=== PATIENT | female | born 1930 | race African-American/Black ===

== ENCOUNTER 2018-08-29 03:20 | Inpatient (IN) | payer MEDICARE ==
[~2018-08-29] VITALS: Ht 160 cm; Wt 82.1 kg
[~2018-08-29 03:20] MED LIST: ATEN100T PO; CLON0.1T PO; INSU100C3 SQ
[2018-08-29 05:19] LABS: BASOPHILS % 0.4 % (0.0-2.0); EOSINOPHILS % 1.7 % (0.0-5.0); HEMATOCRIT. 38.9 % (36.0-48.0); HEMOGLOBIN. 12.9 g/dL (12.0-16.0); LYMPHOCYTES % 30.7 % (20.0-50.0); MEAN CORPUSCULAR HEMOGLOBIN 31.9 pg (28.0-32.0); MEAN CORPUSCULAR VOLUME 96.3 fL (81.0-99.0); MEAN PLATELET VOLUME 8.7 fl (7.4-10.4); MONOCYTES % 6.4 % (2.0-8.0); NEUTROPHILS % 60.8 % (40.0-76.0); PLATELET 148 x1000/uL (130-400); RED BLOOD CELL COUNT 4.04 mill/uL (4.2-5.4); RED CELL DISTRIBUTION WIDTH 13.7 % (11.6-14.6)
[2018-08-29 05:22] LABS: CHLORIDE 105 mEq/L (98-107)
[2018-08-29] MEDS ORDERED: GUAIFENESIN 200MG/10ML SUGAR FREE UDC PO PRN (10:15)
[2018-08-29] MEDS ORDERED: DOCUSATE SODIUM 100MG CAPSULE PO PRN (10:15)
[2018-08-29] MEDS ORDERED: NA PHOS,M-B/NA PHOS,DI-BA ENEMA 118ML PR PRN (10:15)
[2018-08-29] MEDS ORDERED: HYDROCODONE/ACETAMINOPHEN 5/325MG TABLET PO PRN (10:15)
[2018-08-29] MEDS ORDERED: DEXTROSE 50% WATER 50ML SYRINGE IV PRN (10:15)
[2018-08-29] MEDS ORDERED: IPRATROPIUM/ALBUTEROL 0.5-3(2.5)MG/3ML NEB INH PRN (10:15)
[2018-08-29] MEDS ORDERED: ONDANSETRON HCL 4MG/2ML INJ IV PRN (10:15)
[2018-08-29] MEDS ORDERED: MAGNESIUM/ALUMINUM HYDROXIDE/SIMETHICONE 30ML UDC PO PRN (10:15)
[2018-08-29] MEDS ORDERED: HYDRALAZINE 20MG/ML VIAL IV PRN (10:15)
[2018-08-29] MEDS ORDERED: ACETAMINOPHEN 650MG SUPP PR PRN (10:15)
[2018-08-29] MEDS ORDERED: ACETAMINOPHEN 325MG TABLET PO PRN (10:15)
[2018-08-29] MEDS ORDERED: LORAZEPAM 0.5MG TABLET PO PRN (10:15)
[2018-08-29] MEDS ORDERED: DIPHENHYDRAMINE 50MG/ML VIAL IV PRN (10:15)
[2018-08-29 10:19] VITALS: BP 124/64
[2018-08-29] MEDS ORDERED: ENOXAPARIN 30MG/0.3ML SYR SUBCUT SCH (10:30)
[2018-08-29] MEDS ORDERED: ATOR10TA69 MT (11:22)
[2018-08-29] MEDS ORDERED: FLUT1BLS IH (11:28)
[2018-08-29] MEDS ORDERED: FLUT9.9S16 NS (11:28)
[2018-08-29] MEDS ORDERED: ASPI-1159 MT (11:28)
[2018-08-29] MEDS ORDERED: CALC-664 PO (11:28)
[2018-08-29] MEDS ORDERED: BENZ100C86 MT (11:28)
[2018-08-29] MEDS ORDERED: FAMO20TA8 MT (11:28)
[2018-08-29] MEDS ORDERED: GABA-529 MT (11:29)
[2018-08-29] MEDS ORDERED: LORA10TA7 MT (11:30)
[2018-08-29] MEDS ORDERED: P20 MT (11:31)
[2018-08-29] MEDS ORDERED: TIMO5DRO32 EACHEYE (11:31)
[2018-08-29 12:00] VITALS: BP 116/77
[2018-08-29] MEDS ORDERED: FUROSEMIDE 40MG/4ML VIAL IVP NR (12:00)
[2018-08-29] MEDS ORDERED: LEVOFLOXACIN 500MG PREMIX 100 ML IV NR (13:00)
[2018-08-29] MEDS: INSULIN LISPRO 100 UNITS/ML SUBCUT SCH ×3 (13:10→22:27)
[2018-08-29] MEDS: BLOOD SUGAR DIAGNOSTIC STRIP TEST SCH ×3 (13:19→21:28)
[2018-08-29] MEDS: METHYLPREDNISOLONE SOD SUCC 40 MG/ML VIAL IV SCH ×2 (13:20→22:25)
[2018-08-29 15:44] LABS: CREATINE KINASE 45 IU/L (26-192)
[2018-08-29 15:45] LABS: CREATINE KINASE MB FRACTION 2.4 ng/mL (0.5-3.6)
[2018-08-29 16:00] VITALS: BP 126/58
[2018-08-29] MEDS: IPRATROPIUM/ALBUTEROL 0.5-3(2.5)MG/3ML NEB HHN SCH (16:00)
[2018-08-29] MEDS ORDERED: ENOXAPARIN 60MG/0.6ML SYR SUBCUT NR (16:19)
[2018-08-29 17:30] LABS: CLARITY URINE CLEAR (CLEAR); COLOR URINE YELLOW (YELLOW); KETONES URINE NEGATIVE (NEGATIVE); LEUKOCYTE ESTERASE URINE TRACE (NEGATIVE); NITRITE URINE NEGATIVE (NEGATIVE); OCCULT BLOOD URINE NEGATIVE (NEGATIVE); PROTEIN URINE NEGATIVE (NEGATIVE); SPECIFIC GRAVITY URINE 1.011 (1.005-1.030); UROBILINOGEN URINE 0.2 E.U./dL (0.2-1.0)
[2018-08-29 17:33] LABS: PROTHROMBIN TIME 10.4 sec (9.6-11.0)
[2018-08-29 17:48] LABS: *AMPHETAMINES SCREEN URINE NEGATIVE (NEGATIVE); *BARBITURATES SCREEN URINE NEGATIVE (NEGATIVE); *BENZODIAZEPINES SCREEN URINE NEGATIVE (NEGATIVE); *COCAINE SCREEN URINE NEGATIVE (NEGATIVE); METHADONE URINE SCREEN NEGATIVE (NEGATIVE)
[2018-08-29 17:49] LABS: CANNABINOID URINE SCREEN NEGATIVE (NEGATIVE); OPIATES URINE SCREEN NEGATIVE (NEGATIVE); PHENCYCLIDINE URINE SCREEN NEGATIVE (NEGATIVE)
[2018-08-29 20:00] VITALS: BP 134/68
[2018-08-29] MEDS: AMLODIPINE 2.5MG TABLET PO SCH (22:26)
[2018-08-29] MEDS: PANTOPRAZOLE 40MG DR TABLET PO SCH (22:26)
[2018-08-30] VITALS: BP 148/70
[2018-08-30] MEDS ORDERED: INSULIN GLARGINE UD 100 UNITS/ML SYR SUBCUT SCH
[2018-08-30 01:10] LABS: CREATINE KINASE 54 IU/L (26-192)
[2018-08-30 01:12] LABS: CREATINE KINASE MB FRACTION 1.9 ng/mL (0.5-3.6)
[2018-08-30] MEDS ORDERED: INSULIN LISPRO 100 UNITS/ML SUBCUT SCH (01:30)
[2018-08-30 04:00] VITALS: BP 133/55
[2018-08-30] MEDS: NITROGLYCERIN OINT 1GM/INCH UDPKT TD SCH ×2 (07:01→13:24)
[2018-08-30] MEDS: BLOOD SUGAR DIAGNOSTIC STRIP TEST SCH ×3 (07:02→17:33)
[2018-08-30 07:33] LABS: BASOPHILS % 0.2 % (0.0-2.0); HEMATOCRIT. 41.8 % (36.0-48.0); HEMOGLOBIN. 14.1 g/dL (12.0-16.0); LYMPHOCYTES % 13.2 % (20.0-50.0); MEAN CORPUSCULAR HEMOGLOBIN 32.2 pg (28.0-32.0); MEAN CORPUSCULAR VOLUME 95.1 fL (81.0-99.0); MEAN PLATELET VOLUME 8.9 fl (7.4-10.4); MONOCYTES % 3.4 % (2.0-8.0); NEUTROPHILS % 83.2 % (40.0-76.0); PLATELET 169 x1000/uL (130-400); RED BLOOD CELL COUNT 4.39 mill/uL (4.2-5.4); RED CELL DISTRIBUTION WIDTH 13.6 % (11.6-14.6)
[2018-08-30 08:00] VITALS: BP 119/60
[2018-08-30] MEDS: INSULIN LISPRO 100 UNITS/ML SUBCUT SCH ×2 (08:10→13:38)
[2018-08-30 08:54] LABS: CHLORIDE 103 mEq/L (98-107)
[2018-08-30] MEDS: IPRATROPIUM/ALBUTEROL 0.5-3(2.5)MG/3ML NEB HHN SCH (08:55)
[2018-08-30] MEDS ORDERED: ASPIRIN 81MG EC TABLET PO SCH (09:00)
[2018-08-30] MEDS ORDERED: FUROSEMIDE 40MG/4ML VIAL IVP SCH (09:00)
[2018-08-30] MEDS ORDERED: ENOXAPARIN 80MG/0.8ML SYR SUBCUT SCH (09:00)
[2018-08-30] MEDS ORDERED: METHYLPREDNISOLONE SOD SUCC 40 MG/ML VIAL IV SCH (09:00)
[2018-08-30 09:07] LABS: LDL CHOLESTEROL 142 mg/dL (5-100)
[2018-08-30 09:08] LABS: HDL CHOLESTEROL 66 mg/dL (40-59)
[2018-08-30] MEDS: AMLODIPINE 2.5MG TABLET PO SCH (09:34)
[2018-08-30] MEDS: PANTOPRAZOLE 40MG DR TABLET PO SCH (09:34)
[2018-08-30 12:00] VITALS: BP 126/61
[2018-08-30 12:11] LABS: BG BASE EXCESS 2.4 mmol/L (-2.0-2.0); BG CARBOXYHEMOGLOBIN 0.8 % (0.5-1.5); BG DEOXYHEMOGLOBIN 9.8 % (0.0-5.0); BG FRACTION INSPIRED OXYGEN 28; BG HCO3 ACT 27.3 mmol/L (22.0-26.0); BG METHEMOGLOBIN 0.3 % (0.0-1.5); BG OXYGEN SATURATION 90.1 % (92.0-98.5); BG OXYHEMOGLOBIN 89.1 % (94.0-97.0); BG PCO2 43.4 mmHg (35.0-45.0); BG PH 7.417 (7.350-7.450); BG PO2 58.8 mmHg (75.0-100.0); BG SAMPLE SITE RIGHT BRACHIAL; BG TOTAL HEMOGLOBIN 13.5 g/dL (12.0-18.0); BG VENT MODE NASAL CANNULA
[2018-08-30] MEDS ORDERED: GABAPENTIN 100MG CAPSULE PO SCH (12:30)
[2018-08-30] MEDS ORDERED: LEVOFLOXACIN 250MG PREMIX 50 ML IV SCH (13:00)
[2018-08-30 15:11] VITALS: BP 126/61
[2018-08-30 16:00] VITALS: BP 108/74
[2018-08-30] MEDS ORDERED: ATORVASTATIN CALCIUM 10MG TABLET PO SCH (21:00)
[2018-08-31] MEDS ORDERED: FAMOTIDINE 20MG TABLET PO SCH (09:00)
== END 2018-08-30 18:04 | disposition home or self-care (01) | DRG 299 ==
LOC: ER 03:20 → 7WST 06:02 → EDBEDREQ 06:04 → EDBEDREQTM 06:04 → ENRESERV 07:28 → ER 08:29 → 7WST 09:03
PROVIDERS: ADMIT Internal Medicine; ATTEND Ophthalmology
DX: I82.432 Acute embolism and thrombosis of left popliteal vein (principal); I50.43 Acute on chronic combined systolic (congestive) and diastolic (congestive) heart failure; N39.0 Urinary tract infection, site not specified; J98.11 Atelectasis; E66.2 Morbid (severe) obesity with alveolar hypoventilation; R07.89 Other chest pain; I13.10 Hypertensive heart and chronic kidney disease without heart failure, with stage 1 through stage 4 chronic kidney disease, or unspecified chronic kidney disease; R07.81 Pleurodynia; E11.65 Type 2 diabetes mellitus with hyperglycemia; J43.9 Emphysema, unspecified; N18.9 Chronic kidney disease, unspecified; H91.90 Unspecified hearing loss, unspecified ear; H54.62 Unqualified visual loss, left eye, normal vision right eye; J84.10 Pulmonary fibrosis, unspecified; R00.1 Bradycardia, unspecified; E11.40 Type 2 diabetes mellitus with diabetic neuropathy, unspecified; R22.9 Localized swelling, mass and lump, unspecified; E87.5 Hyperkalemia; T38.0X5A Adverse effect of glucocorticoids and synthetic analogues, initial encounter; M19.90 Unspecified osteoarthritis, unspecified site; E78.5 Hyperlipidemia, unspecified; E78.00 Pure hypercholesterolemia, unspecified; E11.22 Type 2 diabetes mellitus with diabetic chronic kidney disease; Z98.42 Cataract extraction status, left eye; Z98.41 Cataract extraction status, right eye; Z87.891 Personal history of nicotine dependence; Z99.81 Dependence on supplemental oxygen; Z79.4 Long term (current) use of insulin; Z88.0 Allergy status to penicillin; Z87.01 Personal history of pneumonia (recurrent); Z79.82 Long term (current) use of aspirin; Z79.899 Other long term (current) drug therapy; Z68.32 Body mass index [BMI] 32.0-32.9, adult; Y92.89 Other specified places as the place of occurrence of the external cause
CPT/HCPCS: 36415; 36600; 71045; 71250; 78582; 80061; 80305; 82375; 82550; 82553; 82805; 82962; 83036; 83880; 84443; 84484; 85379; 93005; 93306; 93970; 94640; 96365; 96372; 96375; 99285; A9558; G0378; J1650; J1815; J1940; J1956; J2920; J7620